=== PATIENT | male | born 1960 | race American Indian/Alaskan Native ===

== ENCOUNTER 2020-02-14 10:11 | Outpatient (CLI) | payer OTHER ==
--- NOTE | 2020-02-14 12:20 | XRay Report ---
CHEST 2 VIEWS INDICATION: HISTORY OF CONGESTIVE HEART FAILURE.. COMPARISON: None FINDINGS: Support devices: None. Heart: Within normal limits. Lungs/pleura: No acute air space or interstitial disease. No pneumothorax. Additional findings: None. IMPRESSION: Unremarkable chest films. Signer Name: Horace Zambrano Jr, MD Signed: 02/14/2020 12:16 PM Workstation Name: [id number]
== END 2020-02-14 10:12 | disposition home or self-care (01) ==
LOC: XRAY 10:11
PROVIDERS: ATTEND Internal Medicine
DX: I50.9 Heart failure, unspecified (principal)
CPT/HCPCS: 71046